=== PATIENT | male | born 1950 | race Caucasian/White ===

== ENCOUNTER 2017-07-25 20:21 | Emergency (ER) | payer MEDICARE ==
[2017-07-25 21:32] VITALS: BP 134/69
[2017-07-25] MEDS ORDERED: HYDROCODONE/ACETAMINOPHEN 5-325 MG TABLET PO ONE (22:30)
[2017-07-25] MEDS ORDERED: PREDNISONE 20 MG TABLET PO ONE (22:30)
[2017-07-25] MEDS ORDERED: METHOCARBAMOL 500 MG TABLET PO ONE (22:30)
--- NOTE | 2017-07-25 22:34 | ER Document Report ---
HPI - HPI Patient complains to provider of: Right upper arm pain Onset: Other - 2 weeks ago Onset/Duration: Worse Quality of pain: Achy Pain Level: 3 Context: Patient states that he was playing softball 2 weeks ago and felt something pull in his posterior right upper arm. Patient did see an orthopedic doctor at home who had him take an anti-inflammatory medication. Patient states that he is down here visiting family and has had an increase in right arm tenderness. Patient denies any new injury. Patient complains of increased pain with extension of his arm in abduction. Patient states that he spoke with a family member who is a family medicine doctor who recommended that he may need a Toradol shot as well as possible steroid medication. Associated Symptoms: Other - Right upper extremity pain Exacerbated by: Movement Relieved by: Remaining still Similar symptoms previously: No Recently seen / treated by doctor: Yes - ROS ROS below otherwise negative: Yes Systems Reviewed and Negative: Yes All other systems reviewed and negative - CONSTITUTIONAL Constitutional: DENIES: Fever - NEURO Neurology: DENIES: Headache - CARDIOVASCULAR Cardiovascular: DENIES: Chest pain - MUSCULOSKELETAL Musculoskeletal: REPORTS: Extremity pain. DENIES: Back Pain, Neck Pain, Swelling - DERM Skin Color: Normal Skin Problems: None Past Medical History - General Information source: Patient - Social History Smoking Status: Never Smoker Frequency of alcohol use: None Drug Abuse: None Occupation: Dentist Lives with: Spouse/Significant other Family History: Reviewed & Not Pertinent Patient has suicidal ideation: No Patient has homicidal ideation: No - Past Medical History Cardiac Medical History: Reports: Hx Hypercholesterolemia Renal/ Medical History: Denies: Hx Peritoneal Dialysis Past Surgical History: Reports: Other - Prostatectomy Vertical Provider Document - CONSTITUTIONAL Agree With Documented VS: Yes Exam Limitations: No Limitations General Appearance: WD/WN, No Apparent Distress - INFECTION CONTROL TRAVEL OUTSIDE OF THE [place] IN LAST 30 DAYS: No - HEENT HEENT: Atraumatic, Normocephalic - NECK Neck: Normal Inspection, Supple Notes: No posterior cervical tenderness - RESPIRATORY Respiratory: Breath Sounds Normal, No Respiratory Distress O2 Sat by Pulse Oximetry: 97 - CARDIOVASCULAR Cardiovascular: Regular Rate, Regular Rhythm Pulses: Normal: Radial - BACK Back: Normal Inspection - MUSCULOSKELETAL/EXTREMETIES Musculoskeletal/Extremeties: MAEW, FROM, Tender - Right upper arm tenderness along distal two thirds of posterior humerus. Patient with tenderness along right tricep muscle. Normal skin color and temperature, no edema or ecchymosis , No Edema. negative: Eccymosis - NEURO Level of Consciousness: Awake, Alert, Appropriate Motor/Sensory: No Motor Deficit, No Sensory Deficit - DERM Integumentary: Warm, Dry, No Rash Course - Vital Signs Vital signs: Temp Pulse Resp BP Pulse Ox 97.8 F 64 16 134/69 H 97 07/25/17 21:29 07/25/17 21:29 07/25/17 21:29 07/25/17 21:29 07/25/17 21:29 Discharge - Discharge Clinical Impression: Strain of triceps muscle Qualifiers: Encounter type: initial encounter Laterality: right Qualified Code(s): S46.311A - Strain of muscle, fascia and tendon of triceps, right arm, initial encounter Condition: Stable Disposition: HOME, SELF-CARE Instructions: Muscle Relaxers ([facility]), Muscle Strain ([facility]), Oral Narcotic Medication ([facility]) Additional Instructions: Return immediately for any new or worsening symptoms Followup with your primary care provider or orthopedic doctor when you return home Prescriptions: Methocarbamol [Robaxin 500 Mg Tablet] 500 mg PO QID PRN #20 tablet PRN Reason: Oxycodone HCl/Acetaminophen [Percocet 5-325 mg Tablet] 1 tab PO ASDIR PRN #15 tablet PRN Reason: Prednisone 20 mg PO DAILY #8 tablet Referrals: [facility] [Provider Group] - Follow up as needed
== END 2017-07-25 22:45 | disposition home or self-care (01) ==
LOC: ER 20:21
DX: S46.311A Strain of muscle, fascia and tendon of triceps, right arm, initial encounter (principal); M79.621 Pain in right upper arm; X58.XXXA Exposure to other specified factors, initial encounter; Y93.64 Activity, baseball; E78.00 Pure hypercholesterolemia, unspecified
CPT/HCPCS: 99283